=== PATIENT | female | born 1985 | race Caucasian/White ===

== ENCOUNTER 2018-05-31 10:19 | Day surgery (SDC) | payer BC ==
[2018-05-31 11:21] LABS: #Lymphocytes 1.5 thou/uL (1.20-3.40); #Monocytes 0.6 thou/uL (0.11-0.59); #Neutrophils 4.6 thou/uL (1.40-6.50); %Basophils 0.7 % (0.0-1.0); %Eosinophils 0.3 % (0.0-10.0); %Lymphocytes 21.8 % (21.0-51.0); %Monocytes 8.4 % (0.0-10.0); %Neutrophils 68.8 % (42.0-75.0); Hemoglobin 13.3 g/dL (12.0-16.0); Mean Corpuscular HGB CONC 33.1 g/dL (32.0-36.0); Mean Corpuscular Hemoglobin 28.5 pg (27.0-31.0); Mean Platelet Volume 8.6 fL (7.4-10.4); Platelet Count 206 thou/uL (130-400); RBC Distribution Width 11.7 % (11.5-14.5); Red Blood Cell (RBC) Count 4.69 mill/uL (4.20-5.40); White Blood Cell (WBC) Count 6.7 thou/uL (4.8-10.8)
[2018-05-31] MEDS ORDERED: Sodium Chloride 0.9% 10 ML ONE (11:28)
[2018-05-31] MEDS ORDERED: CeleCOXIB 100 MG CAP ONE ×2 (11:28→12:24)
[2018-05-31] MEDS ORDERED: Midazolam HCl 2 mg/2 ml Vial ONE (12:34)
[2018-05-31] MEDS ORDERED: Fentanyl 100 MCG/2 ML VIAL ONE (12:34)
--- NOTE | 2018-05-31 14:21 | OP ---
DATE OF PROCEDURE: 05/31/2018 PREOPERATIVE DIAGNOSES: 1. Missed miscarriage at 8 weeks. 2. Desires surgical management. POSTOPERATIVE DIAGNOSES: 1. Missed miscarriage at 8 weeks. 2. Desires surgical management. PROCEDURE PERFORMED: Cervical dilation and suction curettage. SECURITIES ADVISER: None. ANESTHESIA: LMA per Dr. Pineda. ESTIMATED BLOOD LOSS: 100 mL. URINE OUTPUT: 100 mL. FINDINGS: 1. Uterus sounded to 10 cm. 2. Products of conception noted. 3. No bleeding at the termination of the procedure. DESCRIPTION OF PROCEDURE: The patient was taken back to the OR with IV fluids running. When she was in the OR, anesthesia was obtained. The patient was placed in dorsal lithotomy position. The vagina was prepped and draped in normal fashion for vaginal surgery. The bladder was drained approximately 100 mL of urine. An operative speculum was placed into the vagina, and the cervix was visualized and grasped with a single-tooth tenaculum at the anterior lip. The uterus sounded to 10 cm. A 10-mm suction curette was attached to the suction tubing. The cervix was then serially dilated to allow for passage of the suction curette. Suction curette was then passed through the cervix into the uterus with gentle rotation. The products of conception were evacuated from the uterus. Once it was felt that the products were completely removed, a sharp curette was passed into the uterine cavity with uterine cry noted in all planes of the uterus. The suction curette was passed one more time with minimal blood passing through the tubing and no tissue noted. At the end of the procedure, the patient was cleaned, dry, and taken out of lithotomy position. She woke from anesthesia and was transferred to recovery room in good condition. Findings were discussed with her family members, and the questions were answered. Job ID: [id number]
[2018-05-31] MEDS ORDERED: Dexamethasone 20 MG/5 ML VIAL ONE (15:04)
[2018-05-31] MEDS ORDERED: Ondansetron PF 4 MG/2 ML Vial ONE (15:04)
[2018-05-31] MEDS ORDERED: PROPOFOL 200 MG/20 ML VIAL ONE (15:04)
== END 2018-05-31 14:55 | disposition home or self-care (01) ==
LOC: SDC 10:19
PROVIDERS: ATTEND Obstetrics & Gynecology
PROC: 10D07Z8 Extraction of Products of Conception, Other, Via Natural or Artificial Opening (ICD-10-PCS; principal; 2018-05-31)
DX: O02.1 Missed abortion (principal)
CPT/HCPCS: 36415; 85025; 86850; 86900; 86901; 88305; J1100; J2250; J2405; J2704; J3010

== ENCOUNTER 2019-04-13 21:12 | Inpatient (IN) | payer BC ==
[~2019-04-13 21:12] MED LIST: Bupivacaine 0.25% HCL 30 ML VIAL ONE
[2019-04-13] MEDS ORDERED: Ondansetron PF 4 MG/2 ML Vial IVP PRN (21:58)
[2019-04-13] MEDS ORDERED: HYDROcodone/Acetaminophen 5/325 mg Tablet PO PRN ×2 (21:58)
[2019-04-13] MEDS ORDERED: Promethazine HCl 25 MG/ML VIAL IM PRN (21:58)
[2019-04-13] MEDS ORDERED: hydrALAZINE 20 MG/ML VIAL SLOW IVP PRN (21:58)
[2019-04-13] MEDS ORDERED: NS w/ Oxytocin 10 units 500 ML IV SCH ×2 (21:58)
[2019-04-13] MEDS ORDERED: NS / Oxytocin 40 units/1000ml 1,000 ML IV PRN (21:58)
[2019-04-13] MEDS ORDERED: Lidocaine 1% (PF) 30 ML VIAL SC PRN (21:58)
[2019-04-13] MEDS ORDERED: Ibuprofen 800 MG TAB PO PRN (21:58)
[2019-04-13] MEDS ORDERED: Misoprostol 100 MCG TAB VAG SCH (22:15)
[2019-04-13 22:24] VITALS: BMI 24.3
[2019-04-13] MEDS: Lactated Ringer's 1,000 ML IV SCH (22:30)
[2019-04-13 23:01] LABS: Hemoglobin 11.2 g/dL (12.0-16.0); Mean Corpuscular HGB CONC 34.8 g/dL (32.0-36.0); Mean Corpuscular Hemoglobin 28.8 pg (27.0-31.0); Mean Corpuscular Volume 82.6 fL (78.0-98.0); Mean Platelet Volume 9.8 fL (7.4-10.4); Platelet Count 164 thou/uL (130-400); RBC Distribution Width 11.9 % (11.5-14.5); White Blood Cell (WBC) Count 11.3 thou/uL (4.8-10.8)
[2019-04-13] MEDS ORDERED: Acetaminophen 500 MG TAB PO PRN (23:14)
[2019-04-13 23:23] LABS: ALT (SGPT) 22 U/L (8-55); AST (SGOT) 24 U/L (5-34); Albumin 3.2 g/dL (3.5-5.0); Alkaline Phosphatase 176 U/L (40-110); Anion Gap 14 mmol/L (10-20); BUN (Urea Nitrogen) 9 mg/dL (7.0-18.7); Bilirubin, Total 0.3 mg/dL (0.2-1.2); Calc. Creatinine Clearance 149 mL/min (70-130); Calcium 9.3 mg/dL (7.8-10.44); Carbon Dioxide 22 mmol/L (22-29); Chloride 105 mmol/L (98-107); Estimated GFR-MDRD Greater than 90; Globulin 3.5 g/dL (2.4-3.5); Glucose 86 mg/dL (70-105); Potassium 3.9 mmol/L (3.5-5.1); Protein, Total 6.7 g/dL (6.0-8.3); Sodium 137 mmol/L (136-145)
[2019-04-13 23:40] LABS: HBSAg Index 0.38 S/CO (0-0.99); Hep B Surf Ag Non-Reactive S/CO (NonReactive); Syphilis Antibody Nonreactive (Nonreactive); Syphilis Antibody Index 0.04 S/CO (<1.00 Non-Reactive)
[2019-04-14] MEDS: Butorphanol Tartrate 1 MG/ML VIAL SLOW IVP PRN ×3 (02:10→06:24)
[2019-04-14] MEDS: Lactated Ringer's 1,000 ML IV SCH (04:50)
[2019-04-14] MEDS ORDERED: Fentanyl 4 mcg/Bup 0.1% Cadd 100 ML ONE (07:28)
[2019-04-14] MEDS ORDERED: Acetaminophen 325 MG TAB PO PRN (08:14)
[2019-04-14] MEDS ORDERED: diphenhydrAMINE 50 MG/ML VIAL IVP PRN (08:14)
[2019-04-14] MEDS ORDERED: Ondansetron PF 4 MG/2 ML Vial IVP PRN (08:14)
[2019-04-14] MEDS ORDERED: ePHEDrine/0.9% NaCl/PF SYRINGE 50 mg/10 ml SLOW IVP PRN (08:14)
[2019-04-14] MEDS ORDERED: Naloxone HCl 0.4 mg/ml Vial IVP PRN ×2 (08:14)
[2019-04-14] MEDS ORDERED: Lactated Ringer's 500 ML IV PRN (08:14)
[2019-04-14] MEDS ORDERED: Promethazine HCl 25 MG/ML VIAL IM PRN ×2 (08:14→11:45)
[2019-04-14] MEDS ORDERED: Fentanyl 4 mcg/Bupivacaine 0.1% Cassette 100 ML EPIDURAL SCH (08:15)
[2019-04-14] MEDS ORDERED: Communication Order-Pharmacy FS PRN (08:15)
[2019-04-14] MEDS ORDERED: Lidocaine 1% (PF) 30 ML VIAL ONE (09:49)
[2019-04-14] MEDS ORDERED: NS / Oxytocin 40 units/1000ml 1,000 ML ONE (09:49)
--- NOTE | 2019-04-14 10:19 | PDOC.OPDEL ---
OB Operative/Delivery Note Delivery Dr/Surgeon: Allen Pre-Delivery Diagnosis: medically indicated induction (cholestasis of ) Procedure/Post Delivery Dx: spontaneous vaginal delivery Weeks gestation: 37 Anesthesia: epidural - Findings A Sex: male - Additional Findings/Plan Placenta delivered: spontaneous Repaired Obstetrical Laceration: none Estimated blood loss: 200ml QBL pending Post delivery plan: routine recovery
[2019-04-14] MEDS ORDERED: Lanolin Ointment 7 GM TUBE TOP PRN (11:45)
[2019-04-14] MEDS ORDERED: Preparation H Ointment 28 GM TUBE PR PRN (11:45)
[2019-04-14] MEDS ORDERED: hydrALAZINE 20 MG/ML VIAL SLOW IVP PRN (11:45)
[2019-04-14] MEDS ORDERED: diphenhydrAMINE 25 MG CAP PO PRN (11:45)
[2019-04-14] MEDS ORDERED: Bisacodyl 10 MG SUPP PR PRN (11:45)
[2019-04-14] MEDS ORDERED: HYDROcodone/Acetaminophen 5/325 mg Tablet PO PRN (11:45)
[2019-04-14] MEDS ORDERED: Milk Of Magnesia 30 ML UDCUP PO PRN (11:45)
[2019-04-14] MEDS ORDERED: Benzocaine-Menthol 82.5 ML CAN TOP PRN (11:45)
[2019-04-14] MEDS ORDERED: NS / Oxytocin 40 units/1000ml 1,000 ML IV SCH (11:45)
[2019-04-14] MEDS: Ibuprofen 800 MG TAB PO SCH ×2 (12:57→21:07)
[2019-04-14] MEDS: Ferrous Sulfate 325 MG TAB PO SCH (16:03)
[2019-04-14] MEDS: HYDROcodone/Acetaminophen 5/325 mg Tablet PO PRN (17:34)
[2019-04-14] MEDS: Docusate Calcium (SURFAK) 240 MG CAP PO SCH (21:07)
[2019-04-15] MEDS: HYDROcodone/Acetaminophen 5/325 mg Tablet PO PRN ×4 (03:46→17:32)
[2019-04-15] MEDS: Ibuprofen 800 MG TAB PO SCH ×3 (05:02→21:15)
--- NOTE | 2019-04-15 06:54 | PDOC.PP ---
Post Progress Note Post Day #: 1 Subjective: doing well, nursing well, min lochia PO intake tolerated: yes Flatus: yes Ambulation: yes Vital Signs (12 hours) Temp Pulse Resp BP Pulse Ox 04/14/19 23:45 98.0 F 81 18 97/56 L 98 04/14/19 19:45 98.0 F 83 18 103/52 L 97 Weight Weight 155 lb - Physical Examination General: NAD Respiratory: non-labored breathing Abdominal: no distention Fundus firm & at: below umb Neurological: no gross focal deficits Psychiatric: A&Ox3, normal affect Result Diagrams: 04/13/19 22:11 04/13/19 22:10 Additional Labs: Post Labs Blood Type AB POSITIVE 04/13/19 22:11 Hep Bs Antigen Non-Reactive S/CO (NonReactive) 04/13/19 22:11 (1) Cholestasis during Code(s): O26.619 - LIVER AND BILIARY TRACT DISORD IN , UNSP TRIMESTER; K83.1 - OBSTRUCTION OF BILE DUCT Status: Acute (2) Vaginal delivery Code(s): O80 - ENCOUNTER FOR FULL-TERM UNCOMPLICATED DELIVERY Status: Acute - Assessment/Plan PPD1, doing well, likely DC later today.
[2019-04-15] MEDS: Prenatal Vitamin 1 TAB PO SCH (08:06)
[2019-04-15] MEDS: Docusate Calcium (SURFAK) 240 MG CAP PO SCH ×2 (08:06→21:15)
[2019-04-15] MEDS: Ferrous Sulfate 325 MG TAB PO SCH (08:11)
[2019-04-15] MEDS ORDERED: Adacel (T-DAP) 0.5 ML SYRINGE IM ONE (11:45)
[2019-04-16] MEDS: HYDROcodone/Acetaminophen 5/325 mg Tablet PO PRN ×2 (02:55→06:03)
--- NOTE | 2019-04-16 05:23 | PDOC.EVN ---
Event Note - Event Note Event Note: PPD2 DC was on hold from yesterday, set for auto resume this AM. Baby well. Patient well. I courtesy saw the patient this AM Vitals reviewed OK to resume DC orders
[2019-04-16] MEDS: Ibuprofen 800 MG TAB PO SCH ×2 (05:24→13:52)
[2019-04-16] MEDS: Ferrous Sulfate 325 MG TAB PO SCH ×2 (06:24→08:49)
[2019-04-16] MEDS: Docusate Calcium (SURFAK) 240 MG CAP PO SCH (08:49)
[2019-04-16] MEDS: Prenatal Vitamin 1 TAB PO SCH (08:49)
[2019-04-16 08:50] VITALS: BP 108/59; TEMP 98.4
== END 2019-04-16 14:30 | disposition home or self-care (01) | DRG 805 ==
LOC: L&D 21:12 → 3SW 04-14 11:53
PROVIDERS: ADMIT Obstetrics & Gynecology; ATTEND Obstetrics & Gynecology
PROC: 10E0XZZ Delivery of Products of Conception, External Approach (ICD-10-PCS; principal; 2019-04-14)
PROC: 10907ZC Drainage of Amniotic Fluid, Therapeutic from Products of Conception, Via Natural or Artificial Opening (ICD-10-PCS; 2019-04-14)
PROC: 3E0P7VZ Introduction of Hormone into Female Reproductive, Via Natural or Artificial Opening (ICD-10-PCS; 2019-04-14)
PROC: 3E033VJ Introduction of Other Hormone into Peripheral Vein, Percutaneous Approach (ICD-10-PCS; 2019-04-14)
DX: O26.62 Liver and biliary tract disorders in childbirth (principal); K83.1 Obstruction of bile duct; Z37.0 Single live birth; Z3A.37 37 weeks gestation of pregnancy
CPT/HCPCS: 36415; 51702; 80053; 85027; 86780; 86850; 86900; 86901; 87340; J0595; J2001; J2405; J2550; J2590; S0020

== ENCOUNTER 2019-05-27 14:43 | Inpatient (IN) | payer BC ==
[~2019-05-27 14:43] MED LIST changes: -Bupivacaine 0.25% HCL 30 ML VIAL ONE; +Dexamethasone 20 MG/5 ML VIAL ONE; +Esmolol 100 MG/10 ML VIAL ONE; +Glycopyrrolate 0.2 MG/ML 5 ML SYRINGE ONE; +Iopamidol-370 76% 500 ML 1 ML ONE; +Ketorolac Tromethamine 30 MG/ML VIAL ONE; +Lidocaine 1% PF 5 ML VIAL ONE; +Ondansetron PF 4 MG/2 ML Vial ONE; +PHENYLEPHRINE-NS 100 MCG/ML 10 ML SYRINGE ONE; +PROPOFOL 200 MG/20 ML VIAL ONE; +Rocuronium Bromide 10 MG/ML (10ML VIAL) ONE
[2019-05-27] MEDS ORDERED: Morphine 4 MG/ML VIAL ONE ×2 (15:37→17:14)
[2019-05-27] MEDS ORDERED: Ondansetron PF 4 MG/2 ML Vial ONE ×2 (15:37→17:14)
[2019-05-27 17:21] LABS: Bilirubin Negative (Negative); Blood, Urine Negative (Negative); Clarity Clear (Clear); Glucose, Urine (Dipstick) Normal (Negative); Leukocyte Negative Leu/uL (Negative); Nitrite Negative (Negative); Protein, Urine (Dipstick) Negative (Neg-Trace); Urobilinogen Normal mg/dL (Less than 2)
[2019-05-27 17:22] LABS: #Basophils 0.1 thou/uL (0.0-0.2); #Eosinphils 0.1 thou/uL (0.0-0.7); #Lymphocytes 2.1 thou/uL (1.20-3.40); #Monocytes 1.1 thou/uL (0.11-0.59); #Neutrophils 15.1 thou/uL (1.40-6.50); %Basophils 0.4 % (0.0-1.0); %Eosinophils 0.5 % (0.0-10.0); %Lymphocytes 11.3 % (21.0-51.0); %Monocytes 5.8 % (0.0-10.0); Hemoglobin 13.9 g/dL (12.0-16.0); Mean Corpuscular HGB CONC 31.6 g/dL (32.0-36.0); Mean Corpuscular Hemoglobin 26.5 pg (27.0-31.0); Mean Platelet Volume 9.2 fL (7.4-10.4); Platelet Count 264 thou/uL (130-400); RBC Distribution Width 12.9 % (11.5-14.5); Red Blood Cell (RBC) Count 5.23 mill/uL (4.20-5.40); White Blood Cell (WBC) Count 18.4 thou/uL (4.8-10.8)
[2019-05-27 17:23] LABS: Pregnancy Test - Urine (BHCG) Negative (Negative); Pregu Control Background? CLEAR/WHITE (CLR/WHITE); Pregu Control Bar Appear? YES (CONTROL BAR)
--- NOTE | 2019-05-27 17:49 | CT ---
CT OF THE ABDOMEN AND PELVIS WITH IV CONTRAST INDICATION: Abdominal pain, fever and vomiting COMPARISON: None FINDINGS: ABDOMEN: Lung bases: Clear Liver: No focal lesion. Gallbladder: Normal appearing. Pancreas: Normal. Adrenal glands: Normal. Spleen: Normal. Kidneys and ureters: There is a 2 mm nonobstructing calculus involving inferior pole left kidney. Rig ht kidney is normal-appearing. Vasculature: There is a retroaortic left renal vein. Visualized vasculature appears within normal andres its. Lymph nodes:No lymphadenopathy. Free fluid in abdomen:No free fluid is evident. PELVIS: Small and large bowel: Normal Appendix:Enlarged measuring 7.4 mm with surrounding periappendiceal fat stranding. Small amount of fl uid is seen with the right lower quadrant of the abdomen. No drainable fluid collection is evident. Bladder: Normal. Rectal and perirectal soft tissues:Normal. Reproductive structures: There is a 7 mm calculus involving the anterior right aspect of the uterine fundus suspicious for small subserosal fibroid. Free fluid in pelvis: No free fluid is evident. Lymphadenopathy pelvis: No lymphadenopathy is evident. Osseous structures: No acute osseous abnormality. No destructive osteolytic or osteoblastic lesion i s identified. Soft tissues:Normal. IMPRESSION: 1. Noncomplicated acute appendicitis. Findings called to Dr. Joy at 5:40 PM on May 27, 2019 2. Left nephrolithiasis. 3. Small suspected subserosal fibroid involving the right uterine fundus.
[2019-05-27 17:53] LABS: ALT (SGPT) 23 U/L (8-55); AST (SGOT) 23 U/L (5-34); Albumin 4.7 g/dL (3.5-5.0); Alkaline Phosphatase 106 U/L (40-110); Anion Gap 15 mmol/L (10-20); BUN (Urea Nitrogen) 14 mg/dL (7.0-18.7); Bilirubin, Total 0.4 mg/dL (0.2-1.2); Calc. Creatinine Clearance 0 mL/min (70-130); Calcium 9.8 mg/dL (7.8-10.44); Carbon Dioxide 26 mmol/L (22-29); Chloride 101 mmol/L (98-107); Estimated GFR-MDRD 82; Globulin 3.4 g/dL (2.4-3.5); Glucose 80 mg/dL (70-105); Potassium 3.4 mmol/L (3.5-5.1); Protein, Total 8.1 g/dL (6.0-8.3); Sodium 139 mmol/L (136-145)
[2019-05-27] MEDS ORDERED: HYDROmorphone 0.5 MG/0.5 ML SYRINGE ONE (18:21)
[2019-05-27] MEDS ORDERED: Midazolam HCl 2 mg/2 ml Vial ONE (18:21)
[2019-05-27] MEDS ORDERED: Promethazine HCl 25 MG/ML VIAL ONE ×2 (18:22→21:14)
[2019-05-27] MEDS ORDERED: Bupivacaine 0.25% HCL 30 ML VIAL ONE (18:30)
[2019-05-27] MEDS ORDERED: Lidocaine 1% w/Epinephrine 1:100K 20 ML VIAL ONE (18:30)
[2019-05-27] MEDS ORDERED: Sodium Chloride 0.9% 100 ML ONE (18:48)
[2019-05-27] MEDS ORDERED: Piperacillin/Tazobactam 3.375 GM VIAL ONE (18:48)
[2019-05-27] MEDS ORDERED: Promethazine HCl 25 MG/ML VIAL IM PRN ×2 (20:46→22:07)
[2019-05-27] MEDS ORDERED: Promethazine HCl 25 MG/ML VIAL SLOW IVP PRN (20:46)
[2019-05-27] MEDS ORDERED: Ondansetron HCl/PF 4 MG/2 ML Vial IVP PRN (20:46)
[2019-05-27] MEDS ORDERED: D5 1/2 NS w/20 mEq KCL 1,000 ML ONE (21:30)
[2019-05-27] MEDS ORDERED: Dextrose 50% Abboject 50 ML SYRINGE SLOW IVP PRN (22:07)
[2019-05-27] MEDS ORDERED: Acetaminophen 325 MG TAB PO PRN (22:07)
[2019-05-27] MEDS ORDERED: Dextrose 5% in Water 1,000 ML IV PRN (22:07)
[2019-05-27] MEDS ORDERED: hydrALAZINE 20 MG/ML VIAL SLOW IVP PRN (22:07)
[2019-05-27] MEDS: D5 1/2 NS w/20 mEq KCL 1,000 ML IV SCH (22:14)
[2019-05-27 22:56] VITALS: BMI 22.1
[2019-05-28] MEDS: Morphine 2 MG/ML SYRINGE SLOW IVP PRN ×5 (00:26→18:31)
[2019-05-28] MEDS: Ondansetron PF 4 MG/2 ML Vial IVP PRN ×3 (00:26→19:23)
[2019-05-28] MEDS: Ketorolac Tromethamine 30 MG/ML VIAL IVP SCH ×4 (00:26→18:31)
--- NOTE | 2019-05-28 00:27 | HP ---
CHIEF COMPLAINT: Right lower quadrant abdominal pain. HISTORY OF PRESENT ILLNESS: The patient is pleasant 33-year-old previously healthy white female. She is about six weeks from an uncomplicated recent and delivery. Today, she developed lower abdominal pain and subsequently developed nausea and vomiting. The pain started initially about 7 o'clock this morning. She presented to the emergency room, where she underwent evaluation using radiologic and laboratory studies. Laboratory studies revealed leukocytosis with white blood cell count of 18,000. Chemistry, urinalysis essentially unremarkable and test was negative. CT scan shows an enlarged inflamed appendix consistent with acute appendicitis. No other significant intraabdominal findings were noted. She did have a tiny kidney stone noted within her left kidney. PAST MEDICAL HISTORY: Significant for history of melanoma. PAST SURGICAL HISTORY: Melanoma excision from left arm. MEDICATIONS: She takes no prescription medications. ALLERGIES: NO KNOWN DRUG ALLERGIES. PERSONAL AND SOCIAL HISTORY: She is and is present at bedside. She has a 2-1/2-year-old child and her young infant child. She is currently breast-feeding. She does not smoke nor does she drink alcohol. She works with a [employer]. REVIEW OF SYSTEMS: Otherwise unremarkable. FAMILY HISTORY: Noncontributory. PHYSICAL EXAMINATION: VITAL SIGNS: She is afebrile. Vital signs within normal limits. GENERAL: She is a well-developed, well-nourished, pleasant white female, resting in bed, in no acute distress. She is alert and oriented x3. HEAD, EYES, EARS, NOSE, AND THROAT: Unremarkable. NECK: Supple without mass or tenderness. LUNGS: Clear to auscultation throughout. CARDIAC: Regular rate and rhythm without murmur. ABDOMEN: Nondistended. She has focal tenderness in right lower quadrant with no specific tenderness elsewhere. Bowel sounds present and normoactive. EXTREMITIES: Unremarkable. ASSESSMENT: The patient with acute appendicitis. PLAN: Laparoscopic appendectomy. I have discussed the operation in detail with the patient, as well as potential risks. She understands and agrees to proceed with surgery at this time. Job ID: [id number]
[2019-05-28] MEDS: Piperacillin/Tazobactam 3.375 GM in Sodium Chloride 0.9% 100 ML IVPB SCH ×4 (02:07→20:04)
[2019-05-28] MEDS: HYDROcodone/Acetaminophen 7.5/325 mg Tablet PO PRN ×4 (02:13→20:08)
[2019-05-28 05:17] LABS: #Monocytes 0.4 thou/uL (0.11-0.59); #Neutrophils 11.6 thou/uL (1.40-6.50); %Basophils 0.3 % (0.0-1.0); %Eosinophils 0.1 % (0.0-10.0); %Lymphocytes 7.6 % (21.0-51.0); %Monocytes 2.8 % (0.0-10.0); %Neutrophils 89.3 % (42.0-75.0); Hemoglobin 12.5 g/dL (12.0-16.0); Mean Corpuscular HGB CONC 33.8 g/dL (32.0-36.0); Mean Corpuscular Hemoglobin 28.1 pg (27.0-31.0); Mean Platelet Volume 8.7 fL (7.4-10.4); Platelet Count 214 thou/uL (130-400); Red Blood Cell (RBC) Count 4.44 mill/uL (4.20-5.40)
[2019-05-28] MEDS: D5 1/2 NS w/20 mEq KCL 1,000 ML IV SCH ×2 (05:52→15:35)
--- NOTE | 2019-05-28 07:01 | PDOC.GSPN ---
Surgery Progress Note: Subj - Subjective Narrative: Patient complains of RUQ abdominal pain for the past 7 hours that is worse with movement or deep inspiration. Rates pain at 8-9/10 initially, but has improved to 6/10 with pain medication. She was given Toradol and morphine around 4-5am this morning. She has voided, but no bowel movement yet. She has not passed gas. Denies any nausea or vomiting. She has been able to eat jello and drink juice, as well as walk around. She is still receiving D5 1/2 NS with 20 mEq of KCl and Zosyn through her IV. She has a LLQ VIJAY drain in place with 60mL of serosanguinous drainage. Surgery Progress Note: Obj - Vital signs Vital signs: Vital Signs - Most Recent Temp Pulse Resp BP Pulse Ox 98.5 F 98 14 94/64 96 05/28/19 04:10 05/28/19 04:10 05/28/19 04:10 05/28/19 04:10 05/28/19 04:10 - Physical Exam General: moderate pain Cardiovascular: regular rate and rhythm Respiratory: clear to auscultation, other (RUQ abdominal pain with deep inspiration) Abdomen: soft, positive bowel sounds, appropriately tender (RUQ tenderness without radiation) Psychiatric: memory intact, oriented to time, oriented to person, oriented to place, speech is normal Wound: dressing clean,dry,intact, drainage (LLQ VIJAY drain with 60mL of serosanguinous drainage) Surgery Progress Note: Results - Labs Result Diagrams: 05/28/19 05:06 05/27/19 15:50 Lab results: Laboratory Results - last 24 hr 05/28/19 05:06 WBC 13.0 H RBC 4.44 Hgb 12.5 Hct 36.9 MCV 83.0 MCH 28.1 MCHC 33.8 RDW 13.0 Plt Count 214 MPV 8.7 Neutrophils % 89.3 H Lymphocytes % 7.6 L Monocytes % 2.8 Eosinophils % 0.1 Basophils % 0.3 Neutrophils # 11.6 H Lymphocytes # 1.0 L Monocytes # 0.4 Eosinophils # 0.0 Basophils # 0.0 Surgery Progress Note: A/P - Problem (1) S/P appendectomy Current Visit: Yes Code(s): Z90.49 - ACQUIRED ABSENCE OF OTHER SPECIFIED PARTS OF DIGESTIVE TRACT Status: Acute Assessment and Plan: Pt is a 33 year old female who is post op day 1 from an appendectomy. WBC is improved to 13 from 18. VS normal. Patient is currently experiencing RUQ abdominal pain. Pain possibly due to constipation. Will continue to observe and monitor abdominal pain. Will remove VIJAY drain today.
[2019-05-28] MEDS: Famotidine/PF 20 mg/2ml Vial SLOW IVP SCH ×2 (08:37→23:07)
[2019-05-28] MEDS: Enoxaparin Sodium 40 MG/0.4 ML SYRINGE SC SCH (08:37)
[2019-05-28] MEDS: Famotidine 20 MG TAB PO SCH ×2 (08:37→20:05)
[2019-05-28] MEDS ORDERED: Magnesium Citrate 300 ML BOT PO SCH (09:45)
[2019-05-28] MEDS ORDERED: Iopamidol-370 76% 500 ML 1 ML ONE (16:10)
[2019-05-28] MEDS ORDERED: Iopamidol 370 76% 50 ML VIAL FS ONE (16:10)
[2019-05-28 17:16] LABS: #Basophils 0.1 thou/uL (0.0-0.2); #Lymphocytes 2.6 thou/uL (1.20-3.40); #Monocytes 0.8 thou/uL (0.11-0.59); %Basophils 0.4 % (0.0-1.0); %Eosinophils 0.2 % (0.0-10.0); %Monocytes 5.9 % (0.0-10.0); %Neutrophils 74.5 % (42.0-75.0); Hemoglobin 12.3 g/dL (12.0-16.0); Mean Corpuscular HGB CONC 32.3 g/dL (32.0-36.0); Mean Corpuscular Hemoglobin 27.4 pg (27.0-31.0); Mean Corpuscular Volume 84.9 fL (78.0-98.0); Mean Platelet Volume 8.3 fL (7.4-10.4); Platelet Count 242 thou/uL (130-400); Red Blood Cell (RBC) Count 4.48 mill/uL (4.20-5.40); White Blood Cell (WBC) Count 13.5 thou/uL (4.8-10.8)
[2019-05-28 17:30] LABS: Anion Gap 10 mmol/L (10-20); BUN (Urea Nitrogen) 7 mg/dL (7.0-18.7); Calc. Creatinine Clearance 95 mL/min (70-130); Calcium 9.1 mg/dL (7.8-10.44); Carbon Dioxide 26 mmol/L (22-29); Chloride 109 mmol/L (98-107); Estimated GFR-MDRD 76; Glucose 111 mg/dL (70-105); Potassium 4.3 mmol/L (3.5-5.1); Sodium 141 mmol/L (136-145)
--- NOTE | 2019-05-28 18:17 | RAD ---
EXAM: XR Abdomen 2 View/1 View Cxr PROVIDED CLINICAL HISTORY: Abdominal pain after appendectomy. COMPARISON: None FINDINGS: Minimal linear densities are seen at left lung base probably related to minimal atelectasis. The lung s are otherwise clear. Cardiac silhouette and pulmonary vasculature are within normal limits. Surgical clips overlie the left axillary region. There is questionable trace amount of free intraperitoneal gas beneath the right hemidiaphragm likely due to recent appendectomy. A drainage catheter is noted in place overlying the abdomen with tip overlying the right mid abdomen. There is prominent gaseous distention involving the transverse colon greatest in the region of the hepatic flexure and the colon appears redundant in the region of the hepatic flexure. Bowel gas pattern is otherwise nonspecific. There is left convex rotoscoliosis of the thoracolumbar spine. IMPRESSION: 1. Drainage catheter overlying the right abdomen. 2. Trace intraperitoneal free gas beneath the right hemidiaphragm on the upright view likely due to i nterval postsurgical change. 3. Prominent gaseous distention of the transverse colon. 3. Above findings discussed Dr. Alegria on 05/28/2019 at 1814 hours
--- NOTE | 2019-05-28 19:51 | CT ---
CT OF THE ABDOMEN AND PELVIS WITH IV CONTRAST INDICATION: Postop day 1 from appendectomy with right upper quadrant abdominal pain COMPARISON: CT abdomen and pelvis dated May 27, 2019 FINDINGS: ABDOMEN: Lung bases: Bibasilar atelectasis Liver: No focal lesion. Gallbladder: Normal appearing. Pancreas: Normal. Adrenal glands: Normal. Spleen: Normal. Kidneys and ureters: Stable left nephrolithiasis Vasculature: Normal. Lymph nodes:No lymphadenopathy. Free fluid in abdomen:There is scattered free air within the upper abdomen. There is subcutaneous emp hysema involving the abdominal wall. There is a surgical drain entering the left lower quadrant of the abdomen projecting into the right paracolonic gutter and extending along the right aspect of the liver. No large internal drainable fluid collection is evident. PELVIS: Small and large bowel: There is postprocedural change of a recent appendectomy. There is mild fluid d istention of loops of small bowel. The colon is largely decompressed except for portions of the proximal transverse colon and hepatic flexure. There is mild fluid and gaseous distention of the colo n within this region. Appendix:Surgically absent Bladder: Moderately distended Rectal and perirectal soft tissues:Normal. Reproductive structures: Stable calcified fibroids within the uterus Free fluid in pelvis: No free fluid is evident. Lymphadenopathy pelvis: No lymphadenopathy is evident. Osseous structures: No acute osseous abnormality. No destructive osteolytic or osteoblastic lesion i s identified. Soft tissues:There is a moderate emphysema involving the abdominal wall, likely from the patient's re cent appendectomy. IMPRESSION: 1. Postprocedural change of a recent appendectomy including abdominal wall subcutaneous emphysema and mild free air within the abdomen. No large drainable fluid collection is evident. Surgical drain as above 2. Mild fluid distention of loops of small bowel as well as portions of the proximal large bowel ileu s suspicious for mild postop ileus. 3. Stable left nephrolithiasis and fibroid uterus 4. Bibasilar atelectasis
--- NOTE | 2019-05-28 21:57 | PRG ---
DATE OF SERVICE: 05/27/2019 SUBJECTIVE: Ms. Goodwin is seen this evening. When I saw her this morning, she was having more pain than typical in the right upper quadrant. I felt this was likely a retained gas within her colon as she was noted to have some gaseous distention of the colon at the time of surgery. Her drain was draining clear serosanguineous fluid. She had remained afebrile throughout the day. She was tachycardic once at about 630, but I was there at that time and that was only because she was experiencing a severe episode of pain. She had been non-tachycardic just a minute before that. Vital signs had been taken. She had been drinking fluids throughout the day and ambulating. In spite of being given a bottle of magnesium citrate this morning, she never passed a bowel movement or flatus. Since she was not improving, I plan to return her to see her this evening. At about 530, I had ordered some repeat laboratory studies as well as abdominal films. The laboratory studies showed that her white blood cell count was stable at 13.5, hemoglobin was stable at 12.3, and her left shift seemed to be resolving. Her basic metabolic panel was unremarkable, except for mild chloride elevation and slight glucose elevation. Her abdominal x-ray revealed gaseous distention of the right and transverse colon. There was no other dominant abnormality noted. At the point that I had presented, she was having a severe episode of pain and she and her family felt frustration with the lack of certainty regarding the source of the pain. I felt that this pain was most likely related to gaseous distention of her bowel or possibly irritation from the drain which was laying up against the abdominal wall in the right upper quadrant. They requested a CT scan at that time, and I felt that was not unreasonable. CT scan was therefore ordered and obtained. This shows no significant abnormality other than that noted on her abdominal film. She does have gaseous distention of the ascending and transverse colon. She actually has a fairly decompressed distal transverse and left colon. She has fluid distention of segments of the small bowel suggestive of an early ileus. There is no other significant abnormal intraabdominal or inflammatory process that is visualized. I came to speak with the family following the CT scan. At this point, they vented regarding what they felt was poor communication throughout the day as they apparently felt stressed regarding the source of her discomfort. I told them that since the drain was draining clear serosanguineous fluid and this potentially could be related to some of her discomfort that I would recommend drain removal at this time. This was performed uneventfully. I am concerned regarding the appearance of a possible early ileus. I encouraged her to limit her fluid intake, especially if she feels queasy or nauseous. I encouraged her to continue to ambulate and use incentive spirometry and to limit the use of her narcotic medication to the extent possible. She and the family seemed relieved by my explanation. I will obtain followup laboratory studies in the morning. Job ID: [id number]
[2019-05-28] MEDS: Fleet Enema 133 ML BOT FS SCH (22:28)
[2019-05-29] MEDS: Ketorolac Tromethamine 30 MG/ML VIAL IVP SCH ×3 (00:01→11:59)
--- NOTE | 2019-05-29 00:08 | OP ---
DATE OF PROCEDURE: 05/27/2019 PREOPERATIVE DIAGNOSIS: Acute appendicitis. POSTOPERATIVE DIAGNOSIS: Acute appendicitis. PROCEDURE PERFORMED: Laparoscopic appendectomy. ANESTHESIA: General endotracheal. INDICATIONS: The patient is a 33-year-old white female. She is about 6 weeks . She presented with acute abdominal pain and leukocytosis. CT scan documents evidence of acute appendicitis. She is taken to the operative room at this time for laparoscopic appendectomy. DESCRIPTION OF OPERATION: Informed consent was obtained and patient was taken to the operating room, where general endotracheal anesthesia was obtained with patient in supine position. Abdomen was prepped with ChloraPrep and draped in sterile fashion. Local anesthetic was infiltrated and 5 mm infraumbilical incision was created through which a Veress needle was passed into the peritoneal cavity. A pneumoperitoneum was established using carbon dioxide up to pressure of 15 mmHg. A 5 mm trocar port was passed through the same incision. Laparoscopic camera was passed through this port. There was noted to be a small amount of blood associated with distended cecum that was much further medial than it was typical. It was concerning that perhaps the Veress needle had punctured the cecum upon entry. There was no evidence of any stool or enteric drainage. Two additional ports were placed including a 5 mm left lower quadrant port and a 12 mm suprapubic port. Attention was turned first to the area of the colon. I passed a 3-0 Vicryl suture into the abdomen, placed a [id number] suture around the area of concern. The area was nicely covered and inverted. Attention was turned to the appendix. The appendix is noted to be acutely inflamed, consistent with obvious acute appendicitis. There was purulent discharge. The mesoappendix was taken down using electrocautery. The base of the appendix was skeletonized. It was divided between PDS endo-loops. The appendiceal stump was cauterized. The appendix was placed in a specimen retrieval sac and removed through the suprapubic port. The fascia at that location was closed with 0 Vicryl suture using a GraNee needle. The abdomen was then and irrigated widely. I irrigated the pelvis and right lower quadrant and right side of the abdomen. All irrigants were aspirated. Again, there was no evidence of purulence or any enteric fluid or drainage in any location. Because of the potential for concern regarding the cecum, I decided to place a drain at the end of the case. A #19 round fluted drain was placed in the left port and positioned across the abdomen over into the right lower quadrant. Drain was secured with 3-0 nylon suture. All ports and instruments were removed under direct vision. Pneumoperitoneum was carefully evacuated. A 0.25% Marcaine with epinephrine was infiltrated into each port site. Skin edges were approximated with 4-0 Monocryl subcuticular suture. Dermabond was placed externally. The patient remained in stable condition throughout the operation and was taken to recovery room in stable condition. Job ID: [id number]
[2019-05-29] MEDS: D5 1/2 NS w/20 mEq KCL 1,000 ML IV SCH (00:12)
[2019-05-29] MEDS: Piperacillin/Tazobactam 3.375 GM in Sodium Chloride 0.9% 100 ML IVPB SCH ×2 (03:09→08:42)
[2019-05-29 05:11] LABS: #Basophils 0.1 thou/uL (0.0-0.2); #Eosinphils 0.1 thou/uL (0.0-0.7); #Lymphocytes 2.6 thou/uL (1.20-3.40); #Monocytes 0.4 thou/uL (0.11-0.59); #Neutrophils 4.7 thou/uL (1.40-6.50); %Basophils 0.7 % (0.0-1.0); %Eosinophils 1.8 % (0.0-10.0); %Lymphocytes 32.7 % (21.0-51.0); %Monocytes 5.5 % (0.0-10.0); %Neutrophils 59.4 % (42.0-75.0); Hemoglobin 10.3 g/dL (12.0-16.0); Mean Corpuscular HGB CONC 31.9 g/dL (32.0-36.0); Mean Corpuscular Hemoglobin 27.3 pg (27.0-31.0); Mean Corpuscular Volume 85.7 fL (78.0-98.0); Mean Platelet Volume 8.2 fL (7.4-10.4); Platelet Count 164 thou/uL (130-400); Red Blood Cell (RBC) Count 3.78 mill/uL (4.20-5.40); White Blood Cell (WBC) Count 7.9 thou/uL (4.8-10.8)
[2019-05-29 05:35] LABS: Anion Gap 7 mmol/L (10-20); BUN (Urea Nitrogen) 5 mg/dL (7.0-18.7); Calc. Creatinine Clearance 105 mL/min (70-130); Calcium 8.3 mg/dL (7.8-10.44); Carbon Dioxide 27 mmol/L (22-29); Chloride 111 mmol/L (98-107); Estimated GFR-MDRD 86; Glucose 105 mg/dL (70-105); Sodium 141 mmol/L (136-145)
[2019-05-29] MEDS: Famotidine 20 MG TAB PO SCH (08:42)
[2019-05-29] MEDS: Enoxaparin Sodium 40 MG/0.4 ML SYRINGE SC SCH (08:42)
[2019-05-29] MEDS: Famotidine/PF 20 mg/2ml Vial SLOW IVP SCH (09:47)
[2019-05-29] MEDS: Fleet Enema 133 ML BOT FS SCH (09:47)
[2019-05-29 11:50] VITALS: BP 112/67; TEMP 98.2
--- NOTE | 2019-05-31 06:24 | PQF ---
DUSTIN IVERSON MICHAEL W MD [id number] SURG [id number] CLINICAL DOCUMENTATION CLARIFICATION FORM: POST DISCHARGE Addendum to original discharge summary date: ____ Late entry note date: __ DATE: 05/31/2019 ATTN:ALICE ADAIR MD Please exercise your independent, professional judgment in responding to the clarification form. Clinical indicators are provided on the bottom of this form for your review Please check appropriate box(s) to clarify if the following diagnosis has been ruled in or ruled out: Post op ileus [ ] Ruled in diagnosis [ ] Continue to treat [ ] Resolved [x ] Ruled out diagnosis [ ] Cannot rule out diagnosis [ ] Other diagnosis [ ] Unable to determine For continuity of documentation, please document condition throughout progress notes and discharge summary. Thank You. CLINICAL INDICATORS - SIGNS / SYMPTOMS / LABS - I am concerned regarding the appearance of a possible early ileus- Progress note, 05/27, ALICE ADAIR MD. - Acute appendicitis- OP report, 05/27, ALICE ADAIR MD RISK FACTORS - Laparoscopic appendectomy-OP report, 05/27, ALICE ADAIR MD TREATMENTS -Limit get fluid intake-Progress note, 05/27, ALICE ADAIR MD -Morphine.4mg- MAR, 05/27 (This form is maintained as a part of the permanent medical record) 2014 [employer] All Rights Reserved [email or web address]
== END 2019-05-29 12:55 | disposition home or self-care (01) | DRG 343 ==
LOC: ERS 14:43 → SURG B 18:27
PROVIDERS: ADMIT Specialist; ATTEND Specialist
PROC: 0DTJ4ZZ Resection of Appendix, Percutaneous Endoscopic Approach (ICD-10-PCS; principal; 2019-05-27)
DX: K35.80 Unspecified acute appendicitis (principal); Z85.820 Personal history of malignant melanoma of skin
CPT/HCPCS: 36415; 74022; 74177; 80048; 80053; 81003; 81025; 85025; 88304; J1100; J1170; J1650; J1885; J2001; J2250; J2270; J2405; J2543; J2550; J2704; J3490; Q9967; S0020; S0028

== ENCOUNTER 2021-10-21 15:14 | Outpatient (CLI) | payer BC | END 2021-10-21 15:15 | disposition home or self-care (01) | LOC: BICRAD 15:14 | PROVIDERS: ATTEND Nurse Practitioner Family | DX: M23.8X1 Other internal derangements of right knee (principal) ==